=== PATIENT | male | born 1940 | race Hispanic/Latino ===

== ENCOUNTER 2017-11-19 08:37 | Outpatient (RCR) | payer MEDICARE, BC | END 2017-11-21 | LOC: PT 08:37 | PROVIDERS: ATTEND Specialist | DX: S32.19XD Other fracture of sacrum, subsequent encounter for fracture with routine healing (principal); M80.00XD Age-related osteoporosis with current pathological fracture, unspecified site, subsequent encounter for fracture with routine healing; M47.816 Spondylosis without myelopathy or radiculopathy, lumbar region; M54.5 Low back pain; M62.81 Muscle weakness (generalized) | CPT/HCPCS: 97110; 97162; G8978; G8979 ==

== ENCOUNTER 2017-12-21 09:51 | Outpatient (RCR) | payer MEDICARE, BC | END 2017-12-22 | LOC: PT 09:51 | PROVIDERS: ATTEND Specialist | DX: S32.19XD Other fracture of sacrum, subsequent encounter for fracture with routine healing (principal); M80.00XD Age-related osteoporosis with current pathological fracture, unspecified site, subsequent encounter for fracture with routine healing; M47.816 Spondylosis without myelopathy or radiculopathy, lumbar region; M54.5 Low back pain; M62.81 Muscle weakness (generalized) | CPT/HCPCS: 97110 ×12; G8978; G8979 ==

== ENCOUNTER 2017-12-30 09:45 | Outpatient (RCR) | payer MEDICARE, BC | END 2018-01-19 | LOC: PT 09:45 | PROVIDERS: ATTEND Specialist | DX: S32.19XD Other fracture of sacrum, subsequent encounter for fracture with routine healing (principal); M80.00XD Age-related osteoporosis with current pathological fracture, unspecified site, subsequent encounter for fracture with routine healing; M47.816 Spondylosis without myelopathy or radiculopathy, lumbar region; M54.5 Low back pain; M62.81 Muscle weakness (generalized) | CPT/HCPCS: 97110 ×4; 97139; G8979; G8980 ==

== ENCOUNTER 2018-02-27 14:07 | Observation (INO) | payer MEDICARE, BC ==
[~2018-02-27] VITALS: Ht 167.6 cm; Wt 70.3 kg
[2018-02-27 15:08] LABS: BASOPHILS % 0.5 % (0.0-1.0); EOSINOPHILS # (AUTO) 0.1 (0.0-0.4); EOSINOPHILS % 2.2 % (0.0-6.0); HEMATOCRIT 39.5 % (38.2-49.6); HEMOGLOBIN 13.2 g/dL (14.0-18.0); LYMPHOCYTES # (AUTO) 1.4 (1.0-3.2); LYMPHOCYTES % 21.1 % (18.0-39.1); MEAN CORPUSCULAR HEMOGLOBIN 29.3 pg (28-32); MEAN CORPUSCULAR HGB CONC 33.4 g/dL (31-35); MEAN CORPUSCULAR VOLUME 87.8 fL (81-99); MONOCYTES # (AUTO) 0.4 (0.2-0.8); MONOCYTES % 6.3 % (4.4-11.3); NEUTROPHILS # (AUTO) 4.5 (2.1-6.9); NEUTROPHILS % 69.3 % (38.7-80.0); PLATELET COUNT 220 x10e3/uL (140-360); RED CELL DISTRIBUTION WIDTH 12.2 % (11.7-14.4)
[2018-02-27 15:11] LABS: CLARITY,URINE CLEAR (CLEAR); COLOR,URINE YELLOW (YELLOW); KETONES,URINE NEGATIVE (NEGATIVE); LEUKOCYTE ESTERASE ,URINE NEGATIVE (NEGATIVE); NITRITE,URINE NEGATIVE (NEGATIVE); PROTEIN,URINE DIPSTICK NEGATIVE (NEGATIVE)
[2018-02-27 15:12] LABS: AMPHETAMINES SCREEN,URINE NEGATIVE (NEGATIVE); BENZODIAZEPINES SCREEN,URINE NEGATIVE (NEGATIVE); BILIRUBIN,URINE NEGATIVE (NEGATIVE); PHENCYCLIDINE SCREEN,URINE NEGATIVE (NEGATIVE); URINE UROBILINOGEN 0.2 mg/dL (0.2 - 1)
[2018-02-27 15:21] LABS: EPITHELIAL CELLS,URINE FEW /LPF; RBC,URINE 0-5 /HPF (0-5); WBC,URINE (MAN) 0-5 /HPF (0-5)
[2018-02-27 15:22] LABS: INR 1.14; PROTHROMBIN TIME 13.7 seconds (11.9-14.5)
[2018-02-27 15:23] LABS: PARTIAL THROMBOPLASTIN TIME 26.4 seconds (23.8-35.5)
[2018-02-27 15:33] LABS: ALANINE AMINOTRANSFERASE 24 IU/L (0-55); ALBUMIN 3.5 g/dL (3.5-5.0); ALBUMIN/GLOBULIN RATIO 0.9 (0.8-2.0); ALKALINE PHOSPHATASE 57 IU/L (40-150); ANION GAP 13.2 mmol/L (8-16); BLOOD UREA NITROGEN 14 mg/dL (7-26); BUN/CREATININE RATIO 11 (6-25); CALCIUM 9.7 mg/dL (8.4-10.2); CARBON DIOXIDE 27 mmol/L (22-29); CHLORIDE 99 mmol/L (98-107); CREATINE KINASE 109 IU/L (30-200); CREATININE, SERUM 1.23 mg/dL (0.72-1.25); EST GLOMERULAR FILTRATION RATE 57 ML/MIN (60-); GLUCOSE 391 mg/dL (74-118); POTASSIUM 4.2 mmol/L (3.5-5.1); SODIUM 135 mmol/L (136-145)
--- NOTE | 2018-02-27 15:48 | Diagnostic Imaging Report ---
EXAMINATION: CHEST SINGLE (PORTABLE) INDICATION: \S\ERMD ORDER \[id number] \S\1512 \S\Y COMPARISON: None FINDINGS: AP view TUBES and LINES: 15 tear metastatic lead overlying the left cardiac silhouette may represent a retained epicardial wire. LUNGS: Lungs are well inflated. Lungs are clear. There is no evidence of pneumonia or pulmonary edema. PLEURA: No pleural effusion or pneumothorax. HEART AND MEDIASTINUM: Mild enlargement of the cardiac silhouette. BONES AND SOFT TISSUES: Intact median sternotomy wires. No acute osseous lesion. Soft tissues are unremarkable. UPPER ABDOMEN: No free air under the diaphragm. IMPRESSION: Mild enlargement of the cardiac silhouette without pulmonary decompensation. Signed by: Dr. Makenna Melendez M.D. on 02/27/2018 3:44 PM
--- NOTE | 2018-02-27 16:17 | Diagnostic Imaging Report ---
History:Sudden onset of confusion. Comparison studies:MRI brain 01/23/16 Technique: Axial images were obtained from the skull base to the vertex. Coronal and sagittal images reconstructed from the axial data. Intravenous contrast: None Findings: Scalp/skull: No abnormalities. Extra-axial spaces: No masses. No fluid collections. Brain sulci: Mildly prominent. Ventricles: Mild compensatory dilatation. No hydrocephalus. Parenchyma: Few hypodensities in the supratentorial white matter are small vessel ischemic changes. No masses, hemorrhage, acute or chronic cortical vascular insults. Sellar/suprasellar region: No abnormalities. Craniocervical junction: Patent foramen magnum. No Chiari one malformation. Incidental findings: Atherosclerotic calcifications in the carotid siphons . Sclerotic changes and under pneumatization at the mastoid air cell. Impression: No acute abnormalities. Chronic findings: 1. Mild generalized volume loss. 2. Mild supratentorial white matter small vessel ischemic changes. Signed by: DR Hank Avilez M.D. on 02/27/2018 4:13 PM
[2018-02-27] MEDS ORDERED: MORPHINE SULFATE 2 MG/ML SYR IV PRN (16:45)
[2018-02-27] MEDS ORDERED: DEXTROSE 50% SYRINGE 50 ML IV PRN (16:45)
[2018-02-27] MEDS ORDERED: ONDANSETRON HCL INJ 2 MG/ML VIAL IV PRN (16:45)
[2018-02-27] MEDS ORDERED: ASPIRIN 81 MG CHEW TAB PO ONE (16:45)
--- OUTSIDE RECORDS SUMMARY | 2018-02-27 17:44 | XMS REPORT ---
Author Author [facility] Address Unknown Phone Unavailable Care Team Providers Care Barber Shop Operator Name Role Phone MALLORY PALMA Unavailable Unavailable RICARDO GARCIA Unavailable Unavailable Problems This patient has no known problems. Allergies, Adverse Reactions, Alerts This patient has no known allergies or adverse reactions. Medications This patient has no known medications. Results Test Description Test Time Test Comments Text Results Atomic Results Result Comments CHEST SINGLE (PORTABLE) [place] [address] Patient Name: KACIE MALDONADO MR #: [id number] : 1940 Age/Sex: 77/M Req #: [id number] Adm Physician: Ordered by: ИВАН DRAKE NP Report #: [id number] Location: ER Room/Bed: Procedure: [id number] DX/CHEST SINGLE (PORTABLE) Exam Date: 02/27/18 Exam Time: 1512 REPORT STATUS: Signed EXAMINATION: CHEST SINGLE (PORTABLE) INDICATION: COMPARISON : None FINDINGS: AP view TUBES and LINES: 15 tear metastatic lead overlying the left cardiac silhouette may represent a retained epicardial wire. LUNGS: Lungs are well inflated. Lungs are clear. There is no evidence of pneumonia or pulmonary edema. PLEURA: No pleural effusion or pneumothorax. HEART AND MEDIASTINUM: Mild enlargement of the cardiac silhouette. BONES AND SOFT TISSUES: Intact median sternotomy wires. No acute osseous lesion. Soft tissues are unremarkable. UPPER ABDOMEN: No free air under the diaphragm. IMPRESSION: Mild enlargement of the cardiac silhouette without pulmonary decompensation. Signed by: Dr. David Jimenez M.D. on 2017 3:44 PM Dictated By: DAVID JIMENEZ MD 154 Transcribed By: NIKHIL on 02/27/181543 COPY TO: ИВАН DRAKE NP CT BRAIN WO [place] [address] Patient Name: KACIE MALDONADO MR #: [id number] : 1940 Age/Sex: 77/M Req # : [id number] Adm Physician: Ordered by: ИВАН DRAKE NP Report #: [id number] Location: ER Room/Bed: Procedure: [id number] CT/CT BRAIN WO Exam Date: 02/27/18 Exam Time: 1512 REPORT STATUS: Signed History:Sudden onset of confusion. Comparison studies:MRI brain 01/23/16 Technique: Axial images were obtained from the skull base to the vertex. Coronal and sagittal images reconstructed from the axial data. Intravenous contrast: None Findings: Scalp/skull: No abnormalities. Extra-axial spaces: No masses. No fluid collections. Brain sulci: Mildly prominent. Ventricles: Mild compensatory dilatation. No hydrocephalus. Parenchyma: Few hypodensities in the supratentorial white matter are small vessel ischemic changes. No masses, hemorrhage, acute or chronic cortical vascular insults. Sellar/suprasellar region: No abnormalities. Craniocervical junction: Patent foramen magnum. No Chiari one malformation. Incidental findings: Atherosclerotic calcifications in the carotid siphons . Sclerotic changes and under pneumatization at the mastoid air cell. Impression: No acute abnormalities. Chronic findings: 1. Mild generalized volume loss. 2. Mild supratentorial white matter small vessel ischemic changes. Signed by: DR Shakira Avilez M.D. on 02/27/2018 4:13 PM Dictated By: SHAKIRA RICHARDS MD 12 Transcribed By : NIKHIL on 02/27/18 161 COPY TO: ИВАН DRAKE NP ABDOMEN COMP INCL UPR or DECUB [place] [address] Patient Name: KACIE MALDONADO MR #: [id number] : 1940 Age/Sex: 77/M Req #: [id number] Adm Physician: Ordered by: RICARDO GARCIA MD Report #: [id number] Location: [facility] Room/Bed: _ Procedure: [id number] DX/ABDOMEN COMP INCL UPR or DECUB Exam Date: Exam Time: 0900 REPORT STATUS: Signed Acute abdomen series, October 22, 2017 Clinical history: Constipation Comparison: None Technique: Supine and upright AP views abdomen totaling 3 radiographs Findings: Impression. Impression: 1. Nonobstructive bowel gas pattern with moderate stool volume. 2. No evidence for organomegaly or ascites. 3. No irregular calcifications. 4. Intact skeleton with postoperative sequela of kyphoplasty at L2. 5. Cardiomegaly. This report was generated with voice-recognition technology. Errors in cane burner can occur. Please interpret accordingly and contact a radiologist if there are any questions regarding the report. Signed by: Dr. Carter Callahan M.D. on 10/22/2017 9:26 AM Dictated By: CARTER CALLAHAN MD 5 Transcribed By: NIKHIL on 10/22/17925 COPY TO: RICARDO GARCIA MD
--- OUTSIDE RECORDS SUMMARY | 2018-02-27 17:44 | XMS REPORT | Continuity of Care Document ---
Author Author [facility] Organization [facility] Address [address] [place] [address] Phone Unavailable Care Team Providers Care Tassel Maker Name Role Phone RICARDO GARCIA MD PCP Insurance Providers Guarantor Erik Maldonado Address [address] [place] [id number] Payer [facility] Policy Number [id number] Subscriber's Name Erik Maldonado Relationship 18 Self / Same As Patient Group Number [id number] Group Name [employer] Effective Date 12 Payer Medicare A & B Policy Number [id number] Subscriber's Name Erik Maldonado Relationship 18 Self / Same As Patient Group Name RETIRED Effective Date 05 Advance Directives Directive Response Recorded Date/Time Does the patient have an advance directive? No 11/02/08 4:11pm If yes, is advance directive on file with [facility]? No 11/02/08 4:11pm If not on file with [facility] will patient provide a copy? No 01/23/16 3:04pm Do you have a Directive to Physician? No 12/23/17 10:03am Do you have a Medical Power of Commercial Insulator? No 12/23/17 10:03am Do you have an out of hospital Do Not Resuscitate Order? No 12/23/17 10:03am Do you have any special needs we should be aware of? No 12/23/17 10:03am Do you have a support person here with you today? Yes 12/23/17 10:03am Did patient receive Notice of Privacy Practices? Yes 12/23/17 10:03am Did patient receive patient rights and responsibilities? Yes 12/23/17 10:03am Problems No problem information available. Medications No medication information available. Social History No social history information available. Hospital Discharge Instructions No hospital discharge instruction information available. Plan of Care Prescriptions See Medication Section Functional Status No functional status information available. Allergies, Adverse Reactions, Alerts No allergy information available. Immunizations No immunization information available. Vital Signs No vital sign information available. Results No relevant diagnostic test, laboratory data and/or discharge summary information available. Procedures No procedure information available. Encounters Encounter Location Arrival/Admit Date Discharge/Depart Date Attending Provider Discharged [facility] 12/30/17 9:45am 01/19/18 11:59pm KYLEE DINH MD Discharged [facility] 11/23/17 1:55pm 12/22/17 11:59pm KYLEE DINH MD Discharged [facility] 11/18/17 2:14pm 11/21/17 11:59pm KYLEE DINH MD Registered Clinic [facility] 10/22/17 8:40am RICARDO GARCIA MD
[2018-02-27] MEDS: SODIUM CHLORIDE 0.9% 1000ML 1,000 ML IV SCH (17:45)
[2018-02-27] MEDS ORDERED: ASPIRIN 325 MG TAB PO ONE (17:45)
[2018-02-27 19:20] VITALS: BP 162/72
[2018-02-27 20:00] VITALS: BP 162/72
[2018-02-27] MEDS ORDERED: GLIMEPIRIDE2 MG PO (21:55)
[2018-02-27] MEDS ORDERED: LISINOPRIL10 MG PO (21:56)
[2018-02-27] MEDS ORDERED: FINASTERIDE5 MG PO (21:57)
[2018-02-27] MEDS ORDERED: NITROSTAT0.4 MG SL (22:02)
[2018-02-27] MEDS ORDERED: METFORMIN HCL500 MG PO (22:03)
[2018-02-27] MEDS ORDERED: SIMVASTATIN40 MG PO (22:04)
[2018-02-27] MEDS ORDERED: LEVOTHYROXINE50 MCG PO (22:05)
[2018-02-27] MEDS ORDERED: ISOSORBIDE MONO30 MG PO (22:05)
[2018-02-27] MEDS ORDERED: CLOPIDOGREL75 MG PO (22:06)
[2018-02-27] MEDS ORDERED: TOUJEO 300 UNIT/ML SQ (22:27)
[2018-02-27] MEDS ORDERED: NITROGLYCERIN 0.4 MG SUBL SL PRN (22:30)
[2018-02-27 23:14] LABS: CREATINE KINASE MB 2.3 ng/mL (0-5.0)
[2018-02-28] VITALS (7 sets, daily range): BP systolic 124–156; BP diastolic 58–75
[2018-02-28] MEDS: SODIUM CHLORIDE 0.9% 1000ML 1,000 ML IV SCH ×3 (03:56→18:00)
[2018-02-28] MEDS ORDERED: DEXTROSE 50% SYRINGE 50 ML IV PRN (06:00)
--- NOTE | 2018-02-28 07:01 | Diagnostic Imaging Report ---
EXAMINATION: CHEST SINGLE (PORTABLE) INDICATION: Altered mental status, disoriented. COMPARISON: 02/27/2018 FINDINGS: TUBES and LINES: None. LUNGS: Lungs are not well inflated. Progressive confluence of lingular opacity PLEURA: No pleural effusion or pneumothorax. HEART AND MEDIASTINUM: The cardiomediastinal silhouette is unremarkable. BONES AND SOFT TISSUES: No acute osseous lesion. Soft tissues are unremarkable. UPPER ABDOMEN: No free air under the diaphragm. IMPRESSION: Confluent lingular opacity suspicious for aspiration, atelectasis or pneumonia Signed by: Dr. Sebastian Sanchez M.D. on 02/28/2018 6:57 AM
[2018-02-28 07:25] LABS: BASOPHILS % 0.6 % (0.0-1.0); EOSINOPHILS # (AUTO) 0.2 (0.0-0.4); EOSINOPHILS % 2.8 % (0.0-6.0); HEMATOCRIT 34.4 % (38.2-49.6); HEMOGLOBIN 11.4 g/dL (14.0-18.0); LYMPHOCYTES # (AUTO) 2.2 (1.0-3.2); MEAN CORPUSCULAR HEMOGLOBIN 29.2 pg (28-32); MEAN CORPUSCULAR HGB CONC 33.1 g/dL (31-35); MONOCYTES # (AUTO) 0.6 (0.2-0.8); MONOCYTES % 9.2 % (4.4-11.3); NEUTROPHILS # (AUTO) 3.6 (2.1-6.9); NEUTROPHILS % 54.1 % (38.7-80.0); PLATELET COUNT 176 x10e3/uL (140-360); RED BLOOD COUNT 3.91 x10e6/uL (4.3-5.7); RED CELL DISTRIBUTION WIDTH 12.1 % (11.7-14.4)
--- NOTE | 2018-02-28 07:31 | History and Physical ---
A 77-year-old gentleman comes in with right-sided weakness and aphasia. HISTORY OF PRESENT ILLNESS: Mr. Neal has a history of diabetes mellitus, coronary artery disease, which he was in his usual state of health until a day prior to admission. The patient started to have some dizzy spells, and woke up in the morning of the day quaker, and went to quaker. Noted that he had right-sided weakness and also aphasia. The patient could not express what he wanted to say, and this lasted for about 2 hours. The patient was brought here and admitted for symptoms of TIA/stroke. PAST MEDICAL HISTORY: History of coronary artery disease, history of hypertension, history of hyperlipidemia, history of hypothyroidism. MEDICATIONS: He takes at home are: 1. Clopidogrel 75 mg. 2. Finasteride 5 mg. 3. Glimepiride 10 mg twice a day. 4. Isosorbide 30 mg daily. 5. Levothyroxine 50 mcg. 6. Lisinopril 5 mg. 7. Metformin 500 mg. 8. Nitroglycerin 0.4 mg as needed. 9. Simvastatin 40 mg. 10. Toujeo 10 units at nighttime daily. PAST SURGICAL HISTORY: History of triple bypass about 18 years ago, history of throat surgery and back surgery. The patient also has hearing aids and cataract surgery too times 2. SOCIAL HISTORY: No ETOH. No IV drug abuse. Lives with . No drug abuse either. FAMILY HISTORY: Positive for heart disease and diabetes. REVIEW OF SYSTEMS: Negative for chest pain. No shortness of breath. No nausea, vomiting or diarrhea. No constipation. No rectal bleeding. No hematochezia. No hematemesis either. Positive for weakness as mentioned above. PHYSICAL EXAMINATION GENERAL: The patient is alert and oriented times 3. VITAL SIGNS: Temperature is 96.7, pulse 55, respirations 18, blood pressure 124/58, pulse ox 98% on room air. HEENT: Normocephalic and atraumatic. Pupils are reactive to light and accommodation. CV: S1 and S2 normal. Regular rate and rhythm. ABDOMEN: Nontender and nondistended. EXTREMITIES: No clubbing. No cyanosis. No edema. NEUROLOGICAL: Cranial nerves are normal. No sensory or motor deficits. No drift at this time. Good strength in all extremities. Reflexes are normal in extremities. IMAGING STUDIES: Initial brain CT shows mild generalized volume loss, mild supratentorial white matter small vessel changes. Chest x-ray shows mild enlargement of the cardiac silhouette without pulmonary decompensation. LABS: Initial white count was 6.6, hemoglobin 13.2, hematocrit 39.5. Chemistry: Sodium of 135. GFR was 59. ALT, AST, troponins all within normal limits. ASSESSMENT 1. Transient ischemic attack. 2. Hyperlipidemia. 3. Coronary artery disease. 4. Diabetes mellitus. PLAN: Do an MRA of the brain and MRA of the carotids of the neck. The patient will have an echocardiogram scheduled. Also, monitor. Will also check hemoglobin A1c. Further recommendations per clinical course. Also, neurology consult has been done. The patient will be started on aspirin and continued on it. Physical therapy will be consulted for evaluation of his strength. Job#: [id number] RITA
[2018-02-28 07:37] LABS: INR 1.24; PROTHROMBIN TIME 14.7 seconds (11.9-14.5)
[2018-02-28 07:38] LABS: PARTIAL THROMBOPLASTIN TIME 25.4 seconds (23.8-35.5)
[2018-02-28 07:54] LABS: CREATINE KINASE MB 2.1 ng/mL (0-5.0)
[2018-02-28 08:17] LABS: CHOL/HDL RATIO 2.9 (3.9-4.7)
[2018-02-28 08:42] LABS: FREE THYROXINE INDEX 1.816 (1.4-3.8); THYROID STIMULATING HORMONE 1.96 uIU/mL (0.350-4.940)
[2018-02-28 08:50] LABS: ALANINE AMINOTRANSFERASE 16 IU/L (0-55); ALBUMIN 2.8 g/dL (3.5-5.0); ALBUMIN/GLOBULIN RATIO 0.9 (0.8-2.0); ALKALINE PHOSPHATASE 45 IU/L (40-150); ANION GAP 8.9 mmol/L (8-16); BLOOD UREA NITROGEN 9 mg/dL (7-26); BUN/CREATININE RATIO 9 (6-25); CALCIUM 8.7 mg/dL (8.4-10.2); CARBON DIOXIDE 28 mmol/L (22-29); CHLORIDE 104 mmol/L (98-107); CREATININE, SERUM 0.96 mg/dL (0.72-1.25); EST GLOMERULAR FILTRATION RATE > 60 ML/MIN (60-); GLUCOSE 189 mg/dL (74-118); POTASSIUM 3.9 mmol/L (3.5-5.1); SODIUM 137 mmol/L (136-145)
[2018-02-28] MEDS ORDERED: LEVOTHYROXINE SODIUM 50 MCG TAB PO SCH (09:00)
[2018-02-28] MEDS ORDERED: GLIMEPIRIDE 2 MG TAB PO SCH (09:00)
[2018-02-28] MEDS ORDERED: CLOPIDOGREL BISULFATE 75 MG TAB PO SCH (09:00)
[2018-02-28] MEDS ORDERED: TOUJEO SQ SCH ×2 (09:00)
[2018-02-28] MEDS: INSULIN REGULAR, HUMAN 100 UNIT/1 ML 3ML VIAL SQ SCH ×4 (09:10→21:40)
[2018-02-28] MEDS: METFORMIN HCL 500 MG TAB PO SCH ×2 (09:30→17:27)
[2018-02-28] MEDS: ISOSORBIDE MONONITRATE 30 MG TAB CR PO SCH (09:30)
[2018-02-28] MEDS: LISINOPRIL 10 MG TAB PO SCH (09:30)
[2018-02-28] MEDS: FINASTERIDE 5 MG TAB PO SCH (09:31)
[2018-02-28 10:20] LABS: % IRON SATURATION 46 % (15-50); IRON 115 ug/dL (65-175); TOTAL IRON BINDING CAPACITY 251 ug/dL (261-478); TRANSFERRIN 179 mg/dL (174-364)
--- NOTE | 2018-02-28 11:00 | Consultation ---
DATE OF CONSULTATION: February 28, 2018 ATTENDING PHYSICIAN: Dr. Juanita Machado CLINICAL HISTORY: This is a 77-year-old man known to me from previous evaluation referred by Dr. Juanita Machado for cardiovascular evaluation in the setting of possible CVA with right-sided weakness and aphasia. This patient was seen approximately a year ago with left-sided numbness while driving. MRI scan at that time was nonspecific. Dopscan of the carotid was negative. Holter study showed nonsustained supraventricular tachycardia up to 160 beats with bradycardia down to 44 beats per minute. There is history of pulmonary hypertension at 40 mmHg. He was evaluated by neurology, but no specific treatment was recommended. The patient ended up on Plavix and has been taking this medication since. PAST MEDICAL HISTORY: Remarkable for: 1. Coronary artery disease, status post stenting of the right coronary artery times 2 and status post coronary artery bypass surgery prior to that. 2. History of hypothyroidism. 3. Hyperparathyroidism requiring parathyroidectomy. 4. History of hyperlipidemia. 5. Diabetes, insulin dependent. 6. Benign prostatic hypertrophy. 7. Vertebral fracture from a fall. 8. Pulmonary hypertension at 40 mmHg and supraventricular tachycardia up to 160 beats per minute for up to 10 beats but limited treatment due to bradycardia. PAST SURGICAL HISTORY 1. Parathyroidectomy. 2. Coronary artery bypass surgery in 2000. 3. Kidney stones in 2014. FAMILY HISTORY: Brother had coronary artery disease. Sister had diabetes. PERSONAL / SOCIAL HISTORY: Denies smoking and drinking. Used to work in carpentry. ALLERGIES: NONE KNOWN. REVIEW OF SYSTEMS: Negative. PHYSICAL EXAMINATION GENERAL: He is alert and coherent, appears to be comfortable. CARDIAC: Jugular veins are not distended. S1 and S2 were regular. There is no appreciable murmur. LUNGS: Clear. ABDOMEN: Soft. Bowel sounds are present. EXTREMITIES: No cyanosis, clubbing or edema. LABORATORY STUDIES: The white count is 6700, hemoglobin 11.4, platelet count 176,000. INR is 1.24. BUN is 9, creatinine 0.96. IMPRESSION 1. Transient ischemic attack with aphasia and right hand weakness almost completely resolved, started approximately [address] scan showed volume loss with mild supratentorial white matter small vessel ischemic disease with no obvious stroke. 2. History of left arm numbness with previous cerebrovascular accident approximately 2 years ago thought to be due to transient ischemic attack maintained on Plavix. Left atrium in the past has been enlarged, but there is no history of atrial fibrillation. 3. History of nonsustained supraventricular tachycardia 10 beats up to 160 beats per minute with the therapy limited because of contemporaneous bradycardia, with heart rate dropping down to 40 beats per minute. 4. Coronary artery disease status post coronary artery bypass surgery in 2000 and coronary stenting of the right coronary artery in 2011. 5. History of hypothyroidism on thyroid replacement. 6. History of hyperparathyroidism, status post parathyroidectomy. 7. Insulin-dependent diabetes. 8. Hyperlipidemia. 9. Pulmonary hypertension at 40 mmHg. 10. Small vessel coronary artery disease. IMPRESSION: Transient ischemic attack with aphasia. RECOMMENDATION: Consider switching Plavix to anticoagulation. Thank you very much. Job#: [id number] cc:JUANITA MACHADO MD
--- NOTE | 2018-02-28 15:11 | Diagnostic Imaging Report ---
Exams: Brain MRI and cervical and intracranial MRAs without IV contrast History: Aphasia, TIA Comparison studies: Head CT 02/27/2018 and brain MRI 01/23/2016 Technique: Precontrast sagittal axial T2 FS, axial coronal T2 flair, axial T1 FLAIR, axial T2*GRE and axial DWI. Intracranial MRA: Axial 3-D [id number] with coronal, sagittal and 3-D MIP reformats. Cervical MRA: Axial 2-D [id number] with 3-D MIP reformats. Intravenous contrast: None Findings: Brain: Scalp: No abnormal signal. No masses. Bone marrow: Normal in signal intensity. Brain sulci: Mild prominent. Ventricles: Mild compensatory dilatation. No hydrocephalus. Extra axial spaces: No mass, no fluid collection. Parenchyma: No mass, hemorrhage or acute ischemia. A few scattered T2 FLAIR hyperintense foci in the supratentorial white matter are nonspecific but most compatible with chronic small vessel ischemic changes. Suprasellar region: No abnormalities. Craniocervical junction: No abnormalities. The foramen magnum is patent. No Chiari malformations. Vessels: Normal flow-voids in the arteries and sinuses. Paranasal sinuses: Nonspecific inflammatory mucosal thickening in the bilateral maxillary sinuses and ethmoid air cells with small fluid levels in the bilateral maxillary sinuses which could be correlated for acute sinusitis. Incidental findings: Nonspecific bilateral middle ear effusions. Mild to moderate canal stenosis at C3-C4 due to a disc osteophyte complex and thickened ligamentum flavum (cannot further evaluate on this exam. Cervical MRA: Common carotid arteries: Patent. No flow abnormalities. There are incidental inferiorly projecting 1.5 mm outpouchings in the bilateral supraclinoid communicating segments which are compatible with small incidental infundibula regional to the origins of the posterior communicating arteries or small aneurysms. The posterior commuting arteries, if present are hypoplastic beyond resolution of MRA. Carotid bulbs: Patent. No (0%) hemodynamically significant stenosis by NASCET. Vertebral arteries: Patent. No signal abnormalities.. Intracranial MRA: Internal carotid arteries: Patent. No signal abnormalities. Intracerebral arteries: Patent. No signal abnormalities in the A1 and proximal A2 segment. Middle cerebral arteries: Patent, no signal under malleus in the M1 and proximal M2 segments. Vertebrobasilar circulation: Patent. No signal abnormalities.. Anatomical variants: Acom: Visualized. Pcoms: Not well visualized, possibly hypoplastic. Vertebral arteries: Left is slightly dominant. IMPRESSION: Brain: 1. No acute intracranial abnormalities. Specifically, no acute ischemia. 2. Unchanged mild generalized volume loss and mild microvascular ischemic changes. 3. Degenerative canal stenosis at C3-C4. 4. Inflammatory changes in the paranasal sinuses with fluid in the maxillary sinuses could be correlated for acute sinusitis. Cervical and intracranial MRAs: 1. No acute cervical or intracranial MRA abnormalities. 2. No (0%) stenosis at the cervical carotid bulbs by NASCET criteria. 3. Incidental small bilateral supraclinoid ICA infundibula versus small aneurysms. Signed by: Dr. Chandana Hernández M.D. on 02/28/2018 3:08 PM
[2018-02-28] MEDS: GLIMEPIRIDE 2 MG TAB PO SCH (17:27)
[2018-02-28] MEDS: APIXABAN 5 MG TABLET PO SCH (17:27)
--- NOTE | 2018-02-28 19:15 | Consultation ---
DATE OF CONSULTATION: February 28, 2018 NEUROLOGY CONSULTATION HISTORY OF PRESENT ILLNESS: Mr. Neal is a 77-year-old right hand dominant man with a past medical history significant for hypertension, hyperlipidemia, insulin-dependent diabetes mellitus type 2, coronary artery disease, and prior transient ischemic attack, who presented to [facility] on February 27, 2018, with transient neurological symptoms. While at [facility] on February 27, 2018, the patient reached for a cup of coffee with his right hand. He immediately dropped the cup of coffee due to weakness affecting his right hand. The patient's family members thought the weakness of the right hand was due to hypoglycemia. Therefore, Mr. Neal was taken to a restaurant for lunch. However, as the patient and his family were eating lunch, his family members noted he had difficulty using his right hand while eating. Multiple times he dropped various foods, as well as his utensils. At one point, he was using his utensils inappropriately. During this time, the patient's daughter noted his speech was mildly garbled. Mr. Neal appeared to have word finding difficulties as well. During this time, Mr. Neal endorses blurred vision affecting both eyes and imbalance with unsteady gait as well. As his family members noticed these additional symptoms, they realized the multitude of symptoms was not due to hypoglycemia. Mr. Neal was brought to the emergency center at [facility] by his family for further evaluation. While in the emergency center, the patient endorsed a headache. Once he was given intravenous morphine, as well as a second medication for nausea, the patient's multiple symptoms began to gradually resolve. While in the emergency center, the patient underwent a CT of the brain without contrast, which did not show evidence of large territorial ischemia, hemorrhage, mass, or mass effect. Mr. Neal was admitted to [facility] as an inpatient for further evaluation and treatment. Mr. Neal reports having occasional "usual" headaches in the past, especially as a young and middle-aged adult. To his knowledge, he has never experienced a migraine. He has never received a diagnosis of migraine. Mr. Neal experienced similar symptoms approximately 2 years ago. At that time, the patient was hospitalized at [facility] for a complete stroke evaluation. His diagnosis upon discharge was transient ischemic attack. REVIEW OF SYSTEMS: Changes in vision (blurred vision), constipation, dysarthria, aphasia, weakness of the right arm, and impaired balance and gait. Otherwise, the 12-point review of systems is negative. PAST MEDICAL HISTORY: Hypertension, hyperlipidemia, insulin-dependent diabetes mellitus, type 2, coronary artery disease, thyroid disease, kidney stones, benign prostatic hypertrophy. PAST SURGICAL HISTORY: Cardiac stent placement, 3-vessel CABG, resection of a prostate mass, other procedures to the prostate. PAST HOSPITALIZATIONS: For surgeries and procedures as listed, fall. FAMILY HISTORY: The patient's paternal and maternal grandparents are . Their medical histories are unknown. The patient's father is . He had coronary artery disease and diabetes mellitus. The patient's mother is . She had coronary artery disease and diabetes mellitus. The patient has multiple brothers and sisters, all of whom are living. All had diabetes mellitus and coronary artery disease. The patient has two daughters who are living. Both have hypertension and diabetes mellitus. SOCIAL HISTORY: The patient is . He graduated from college in [place]. 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 He does not report current or prior tobacco, alcohol, or recreational drug use. HOME MEDICATIONS 1. Plavix 75 mg by mouth daily. 2. Finasteride 5 mg by mouth daily. 3. Glimepiride 2 mg by mouth twice daily. 4. Isosorbide mononitrate 30 mg by mouth daily. 5. Levothyroxine sodium 50 mcg by mouth daily. 6. Lisinopril 5 mg by mouth daily. 7. Metformin 1000 mg by mouth twice daily. 8. Nitroglycerin 0.4 mg sublingually as needed for chest pain. 9. Simvastatin 40 mg by mouth at bedtime daily. 10. Toujeo 10 units subcutaneously daily. ALLERGIES: NO KNOWN DRUG ALLERGIES. NO KNOWN FOOD ALLERGIES. NO KNOWN ALLERGIES TO LATEX. NO KNOWN ALLERGIES TO IODINE OR OTHER CONTRAST MATERIALS. PHYSICAL EXAMINATION VITAL SIGNS: Height 66 inches, weight 155 pounds. BMI 25 kg per meter squared. Blood pressure 156/75 mmHg, Pulse of 70 beats per minute, respiratory rate 18 breaths per minute, oxygen saturation 98% on room air. GENERAL: The patient is awake and alert, does not appear distressed. HEENT: Normocephalic and atraumatic. Pupils are equal, round and reactive to light. Moist mucous membranes. NECK: Supple. No appreciable thyromegaly. No appreciable carotid bruits. CARDIOVASCULAR: S1 and S2. Regular rate and rhythm. No rubs or gallops. There is a moderate grade systolic ejection murmur appreciated on examination. RESPIRATORY: Clear to auscultation bilaterally. No wheezes, rhonchi, or rales. EXTREMITIES: The skin is warm and dry. No clubbing, cyanosis or edema. The posterior tibial and dorsalis pedis pulses are 2+ and symmetric. SKIN: No rashes or lesions. NEUROLOGIC: MEMORY/ATTENTION: The patient is awake and alert, oriented to person, place, time, and situation. CRANIAL NERVES: Cranial nerve I: Not tested. Cranial nerve II, III IV, and : Pupils are equal and round. React briskly to light (from 4 mm to 2 mm). Extraocular movements are intact. No nystagmus. Cranial nerve V: Sensation to light touch and pinprick is intact in the bilateral V1 through V3 distributions. Strength of the temporalis and masseter muscles is within normal limits. Cranial nerve VII: The face is symmetric as were all facial movements. Strength is within normal limits. Cranial nerve VIII: Hearing is diminished to finger rub bilaterally. Cranial nerve IX and X: Soft palate elevates equally and symmetrically. Cranial nerve XI: Normal strength of the bilateral sternocleidomastoid and trapezius muscles. Cranial nerve XII: The tongue protrudes in the midline and moves symmetrically from side to side. STRENGTH: The patient is able to maintain both arms against gravity for more than 10 seconds each. The patient is able to maintain both legs against gravity for more than 5 seconds each. Bulk is normal. Strength is 5/5 in the bilateral deltoids, biceps, triceps, wrist flexors and extensors, finger flexors and extensors, intrinsic hand muscles, hip flexors, knee flexors and extensors, ankle dorsiflexion and plantar flexion, and intrinsic foot muscles. Tone is normal. DTRs: Deep tendon reflexes are 2+ and symmetric at the triceps, biceps, brachioradialis, and patellas. The Achilles reflexes are trace and symmetric. Plantar responses are flexor bilaterally. Absent clonus. SENSATION: Is intact to light touch and pinprick in both arms and both legs. CEREBELLAR: [id number] and heel-cook movements are intact without dysmetria or other impairment. Rapid alternating movements are intact. GAIT: Spontaneous gait is normal. SPEECH: Spontaneous speech is normal without appreciable dysarthria or aphasia. Repetition is intact. INVOLUNTARY MOVEMENTS: None. PRONATOR DRIFT: None. LABORATORY DATA: Sodium 137, potassium 3.9, chloride 104, carbon dioxide 28. Anion gap 8.9, BUN 9, creatinine 0.96. Estimated GFR greater than 60. BUN to creatinine ratio 9. Serum glucose 189. Calcium 8.7. Total bilirubin 0.6, AST 13, ALT 16, and alkaline phosphatase 45. Total protein 5.8, albumin 2.8, globulin 3. Albumin to globulin ratio 0.9. Creatinine kinase 109, 81 and 72. CK-MB 3.4, 2.3, 2.1. Troponin I less than 0.001, 0.002, 0.001. Hemoglobin A1c 7.5. Total cholesterol 129, triglycerides 68, LDL 71, HDL 44. Vitamin B12 330. TSH 1.96. Free T4 index 1.816. Thyroxine 5.54. T3 uptake 32.78. CBC with differential and platelets reveals a white blood cell count of 6.73 with a normal differential. The hemoglobin and hematocrit are 11.4 and 34.4 respectively. Platelet count is 176,000. PT 14.7, INR 1.24 and PTT 25.4. Urinalysis was unremarkable. Toxicology was negative. DIAGNOSTIC STUDIES: CT of the brain without contrast on February 27, 2018, on my review, there is no evidence of recent large territorial ischemia, hemorrhage, mass or mass effect. MRI of the brain without contrast on February 28, 2018, on my review, there is no evidence of recent large territorial ischemia, hemorrhage, mass, or mass effect. There is mild generalized volume loss, appropriate for age. There are nonspecific and scattered T2/flair hyperintense foci compatible with chronic small vessel ischemic disease. MRA of the brain and neck without contrast on February 28, 2018, no acute cervical or intracranial MRA abnormalities. No stenosis of the cervical carotid bulbs by NASCET criteria. Incidental small bilateral supraclinoid ICA infundibulum versus small aneurysms. Echocardiogram with normal left ventricular systolic function with ejection fraction of 65% to 70%. There is concentric left ventricular hypertrophy. There is left atrial enlargement. There are no significant valvular abnormalities. There is no evidence of pericardial effusion. ECG 02/27/2018: Normal sinus rhythm at 77 beats per minute. ASSESSMENT AND PLAN: Mr. Neal is a 77-year-old right hand dominant man with a past medical history significant for hypertension, hyperlipidemia, insulin- dependent diabetes mellitus type 2, coronary artery disease, and prior transient ischemic attack admitted to [facility] on February 27, 2018, with a transient ischemic attack. The patient's neurological examination is nonfocal. The patient laboratory data and other diagnostic studies have been reviewed and are documented above. The patient has undergone a complete stroke evaluation. The findings of those various studies are documented above. RECOMMENDATIONS: Are as follows: 1. Mr. Neal was evaluated by a wrapper caser, Dr. Diego Oswald, on February 28, 2018. Dr. Oswald has recommended the patient take Eliquis 5 mg by mouth twice daily for stroke prophylaxis. This medication will be continued. 2. The patient's goal blood pressure is less than 130/70 mmHg. A review of the patient's past several blood pressures shows Mr. Neal is at goal. His current antihypertensive medications will be continued. 3. The patient's goal total cholesterol is less than 200 with an LDL of less than 70. The patient is currently at goal. Treatment with his home medication of Zocor 40 mg by mouth at bedtime daily will be continued. 4. The patient's goal hemoglobin A1c is less than 7. During his hospitalization, Mr. Neal's hemoglobin A1c was found to be 7.5. The importance of adhering to an AHA/ADA diet as well as exercising for 30 to 45 minutes per day several days per week was discussed with the patient. Mr. Neal was advised to follow with his treating physician at regular intervals for continued monitoring of his diabetes mellitus and for adjustment of his medications as well. 5. The patient received education regarding the possible symptoms of a stroke. He and his family were advised to call 911 if the patient, or anyone else, experiences these symptoms. There are no further recommendations from the neurology service at this time. Mr. Neal may be discharged home as per the primary service. The patient was instructed to followup with me as an outpatient in approximately 2 weeks. Thank you for this consultation. Time spent 70 minutes. Job#: [id number] RITA CHACON
[2018-02-28] MEDS ORDERED: SIMVASTATIN 40 MG TAB PO SCH (21:00)
[2018-03-01] VITALS: BP 120/59
[2018-03-01] MEDS: SODIUM CHLORIDE 0.9% 1000ML 1,000 ML IV SCH ×2 (02:03→08:32)
[2018-03-01 04:00] VITALS: BP 120/59
[2018-03-01] MEDS ORDERED: LEVOTHYROXINE SODIUM 50 MCG TAB PO SCH (06:00)
[2018-03-01 07:03] LABS: BASOPHILS % 0.6 % (0.0-1.0); EOSINOPHILS # (AUTO) 0.2 (0.0-0.4); EOSINOPHILS % 4.6 % (0.0-6.0); HEMATOCRIT 33.2 % (38.2-49.6); LYMPHOCYTES # (AUTO) 1.9 (1.0-3.2); LYMPHOCYTES % 37.5 % (18.0-39.1); MEAN CORPUSCULAR HEMOGLOBIN 29.3 pg (28-32); MEAN CORPUSCULAR HGB CONC 33.1 g/dL (31-35); MEAN CORPUSCULAR VOLUME 88.3 fL (81-99); MONOCYTES # (AUTO) 0.4 (0.2-0.8); MONOCYTES % 7.9 % (4.4-11.3); NEUTROPHILS # (AUTO) 2.4 (2.1-6.9); PLATELET COUNT 177 x10e3/uL (140-360); RED BLOOD COUNT 3.76 x10e6/uL (4.3-5.7); RED CELL DISTRIBUTION WIDTH 12.1 % (11.7-14.4)
[2018-03-01 07:18] LABS: ANION GAP 10.9 mmol/L (8-16); BLOOD UREA NITROGEN 9 mg/dL (7-26); BUN/CREATININE RATIO 10 (6-25); CALCIUM 8.5 mg/dL (8.4-10.2); CARBON DIOXIDE 25 mmol/L (22-29); CHLORIDE 108 mmol/L (98-107); CREATININE, SERUM 0.91 mg/dL (0.72-1.25); EST GLOMERULAR FILTRATION RATE > 60 ML/MIN (60-); GLUCOSE 154 mg/dL (74-118); POTASSIUM 3.9 mmol/L (3.5-5.1); SODIUM 140 mmol/L (136-145)
[2018-03-01] MEDS: INSULIN REGULAR, HUMAN 100 UNIT/1 ML 3ML VIAL SQ SCH (09:50)
--- NOTE | 2018-03-01 10:04 | Cardiology Report ---
DATE OF STUDY: DOPPLER SCAN OF CAROTIDS The left and right carotid arteries were interrogated using the duplex scanning method. Left carotid artery shows mild intimal thickening and plaquing without high-grade stenosis or flow impairment. Left vertebral flow appears antegrade. Right carotid artery shows mild intimal thickening and plaquing without high-grade stenosis or flow impairment. Right vertebral flow appears to be antegrade. CONCLUSIONS 1. No high-grade stenosis bilaterally. 2. Mild intimal thickening and plaquing bilaterally. 3. Vertebral flow appears to be in normal direction bilaterally. Job#: [id number] cc: MD JUANITA RANGEL MD
[2018-03-01] MEDS: FINASTERIDE 5 MG TAB PO SCH (10:14)
[2018-03-01] MEDS: APIXABAN 5 MG TABLET PO SCH (10:14)
[2018-03-01] MEDS: ISOSORBIDE MONONITRATE 30 MG TAB CR PO SCH (10:14)
[2018-03-01] MEDS: METFORMIN HCL 500 MG TAB PO SCH (10:14)
[2018-03-01] MEDS: LISINOPRIL 10 MG TAB PO SCH (10:14)
[2018-03-01] MEDS: GLIMEPIRIDE 2 MG TAB PO SCH (10:14)
--- NOTE | 2018-03-01 10:14 | Cardiology Report ---
DATE OF STUDY: February 28, 2018 ECHOCARDIOGRAM M-MODE: Moderately dilated left atrium. Left ventricular hypertrophy and mild aortic sclerosis. Normal mitral and tricuspid valves. No pericardial effusion. SECTOR SCAN: Moderately dilated left atrium measuring 6 x 4.5 cm. Dilated right atrium, mild. Left ventricular hypertrophy. Normal contractility. Ejection fraction is approximately 65%. Aortic valve is mildly sclerotic. Mitral and tricuspid valves are normal. There is no pericardial effusion. CARDIAC DOPPLER STUDY WITH COLOR: Trace tricuspid regurgitation. Pulmonary artery systolic pressure estimated at 43 mmHg. CONCLUSIONS 1. Moderately dilated left atrium measuring approximately 6 x 4.5 cm. 2. Mildly enlarged right atrium with trace mitral regurgitation and mild pulmonary hypertension. Pulmonary artery systolic pressure estimated at 43 mmHg. 3. Aortic sclerosis, mild, without aortic stenosis. 4. Left ventricular hypertrophy with ejection fraction of approximately 65%. 5. No evidence of atrial septal defect, ventricular septal defect, intracardiac thrombi or masses. Job#: [id number] cc:MD GUILLERMINA HARRIS MD
--- NOTE | 2018-04-25 21:00 | Discharge Summary ---
The patient was admitted for TIA, was continued on Plavix. Consult with Dr. Diego Oswald and Dr. Onelia Vu was done too. MRI was negative. Patient had bradycardia. Dr. Oswald was consulted for cardiology. For his hyperlipidemia, statins were started. The patient also was back on his home medications, which included aspirin and finasteride, simvastatin, isosorbide, lisinopril, nitroglycerin, and glimepiride. Patient was feeling better the 2nd day and no complaints were noted, and patient has history of coronary artery disease, and also patient's warren down to 40s and according to Dr. Oswald, this is very normal for the patient. Since all other findings were all within normal limits, the patient was discharged home. Patient was asked to continue his Plavix and aspirin. Echocardiogram showed EF of 65%-75% with the concentric LVH, and mild TR. Further information according to chart. FINAL DIAGNOSIS: Transient ischemic attack. Patient was also asked to follow up with Dr. Vu. For further information, look in the chart. For medicines on discharge, look in the medical reconciliation sheet. JUANITA MACHADO MD Job#: [id number] CQ
== END 2018-03-01 10:30 | disposition home or self-care (01) ==
LOC: ER 14:07 → ERHOLD 17:40 → MED/SURG 18:06
PROVIDERS: ADMIT Family Medicine; ATTEND Family Medicine
DX: G45.9 Transient cerebral ischemic attack, unspecified (principal); R41.82 Altered mental status, unspecified; R47.01 Aphasia; E11.9 Type 2 diabetes mellitus without complications; Z95.1 Presence of aortocoronary bypass graft; E78.5 Hyperlipidemia, unspecified; I25.10 Atherosclerotic heart disease of native coronary artery without angina pectoris; I69.354 Hemiplegia and hemiparesis following cerebral infarction affecting left non-dominant side; Z79.01 Long term (current) use of anticoagulants; E03.9 Hypothyroidism, unspecified; E21.3 Hyperparathyroidism, unspecified; Z79.4 Long term (current) use of insulin; I27.20 Pulmonary hypertension, unspecified
CPT/HCPCS: 36415 ×3; 70450; 70544; 70547; 70551; 71045 ×2; 80048; 80053 ×2; 80061; 80307; 80320; 81001; 82270; 82550 ×2; 82553 ×2; 82607; 82948 ×3; 83036; 83540; 84436; 84443; 84466; 84479; 84484 ×2; 85025 ×3; 85610 ×2; 85651 ×2; 85730 ×2; 87086; 93005 ×2; 93306; 93880; 99284; G0378 ×3; J2270; J2405; J7030 ×3

== ENCOUNTER → 2019-05-09 | Day surgery (SDC) | payer MEDICARE, BC ==
[~2019-05-09] MED LIST: CLOPIDOGREL75 MG PO; FENTANYL CITRATE/PF 100MCG/2 ML INJ ONE; FINASTERIDE5 MG PO; GLIMEPIRIDE2 MG PO; ISOSORBIDE MONO30 MG PO; LEVOTHYROXINE50 MCG PO; LISINOPRIL10 MG PO; METFORMIN HCL500 MG PO; MIDAZOLAM HCL 2 MG/2 ML VIAL ONE; NITROSTAT0.4 MG SL; OR PHACO EYE KIT ONE; PREOP PHACO EYE KIT ONE; SIMVASTATIN40 MG PO; SM NATURAL BAL100 MG PO; TOUJEO 300 UNIT/ML SQ; eliquis PO
[2019-05-09 14:03] VITALS: BP 140/64
== END | disposition home or self-care (01) ==
LOC: OR 09:51
PROVIDERS: ATTEND Ophthalmology
DX: H25.12 Age-related nuclear cataract, left eye (principal); E11.9 Type 2 diabetes mellitus without complications; E78.5 Hyperlipidemia, unspecified; I10 Essential (primary) hypertension; I48.91 Unspecified atrial fibrillation; I25.810 Atherosclerosis of coronary artery bypass graft(s) without angina pectoris; E03.9 Hypothyroidism, unspecified; Z79.4 Long term (current) use of insulin; Z79.02 Long term (current) use of antithrombotics/antiplatelets; Z86.73 Personal history of transient ischemic attack (TIA), and cerebral infarction without residual deficits; Z95.1 Presence of aortocoronary bypass graft
CPT/HCPCS: 36415; 66984; 82948; J2250; V2632

== ENCOUNTER → 2019-05-23 | Day surgery (SDC) | payer MEDICARE, BC ==
[~2019-05-23] MED LIST changes: +ACETAMINOPHEN/CODEINE 300MG - 30MG TAB ONE
[2019-05-23 14:45] VITALS: BP 125/63
== END | disposition home or self-care (01) ==
LOC: OR 11:00
PROVIDERS: ATTEND Ophthalmology
DX: H25.11 Age-related nuclear cataract, right eye (principal); I25.10 Atherosclerotic heart disease of native coronary artery without angina pectoris; E11.9 Type 2 diabetes mellitus without complications; E78.5 Hyperlipidemia, unspecified; Z88.6 Allergy status to analgesic agent; Z79.02 Long term (current) use of antithrombotics/antiplatelets; Z79.84 Long term (current) use of oral hypoglycemic drugs; Z79.4 Long term (current) use of insulin; Z86.73 Personal history of transient ischemic attack (TIA), and cerebral infarction without residual deficits; Z95.1 Presence of aortocoronary bypass graft
CPT/HCPCS: 36415; 66984; 82948; J2250; V2632; J3010